=== PATIENT | female | born 1965 | race Caucasian/White ===

== ENCOUNTER 2017-06-05 14:51 | Emergency (ER) | payer MEDICAID ==
[~2017-06-05] VITALS: Ht 165.1 cm; Wt 117.9 kg
[2017-06-05 14:58] VITALS: BP_SYST 147
--- NOTE | 2017-06-05 15:01 | NUR ---
Patient to ER bed 02 to gown for evaluation. Side rails up.
--- NOTE | 2017-06-05 15:02 | NUR ---
PT PRESENTS TO ED C/O PAIN W/ DEEP INSPIRATION. PT H/O HTN W/O COMPLIANTS W/O MEDS.
--- NOTE | 2017-06-05 15:04 | NUR ---
ER at bedside examining patient.
[2017-06-05] MEDS: IBUPROFEN 800 MG TABLET PO ONE (15:35)
[2017-06-05] MEDS: ONDANSETRON 4 MG ODT TAB PO ONE (15:35)
[2017-06-05] MEDS: traMADol HCL HCL 50 MG TABLET (ULTRAM) PO ONE (15:35)
--- NOTE | 2017-06-05 15:35 | NUR ---
PT MEDICATED TOLERATED WELL.
[2017-06-05 15:47] LABS: BASOPHILS # (AUTO) 0.4 K/uL (0.0-0.2); BASOPHILS % (AUTO) 3.4 % (0.0-2.0); EOSINOPHILS # (AUTO) 0.3 K/uL (0.0-0.4); EOSINOPHILS % (AUTO) 2.8 % (0.0-4.0); HEMOGLOBIN 14.1 g/dL (12.0-16.0); LYMPHOCYTES # (AUTO) 2.3 K/uL (1.0-5.5); MEAN CORPUSCULAR HEMOGLOBIN 29 pg (27-31); MEAN CORPUSCULAR HGB CONC 33 % (32-36); MEAN CORPUSCULAR VOLUME 89 fL (79.0-98.0); MONOCYTES # (AUTO) 0.8 K/uL (0.0-1.0); MONOCYTES % (AUTO) 7.7 % (1.7-9.3); NEUTROPHILS % (AUTO) 65.1 % (40.0-70.0); PLATELET COUNT (AUTO) 322 K/uL (130-430); RED BLOOD CELL COUNT(AUTO) 4.83 MIL/uL (4.2-6.2); RED CELL DISTRIBUTION WIDTH 12.2 % (9.0-15.0); WHITE BLOOD COUNT (AUTO) 10.8 K/uL (4.8-10.8)
[2017-06-05 15:58] LABS: CALCIUM 9.6 mg/dL (8.4-11.0); CREATININE 0.81 mg/dL (0.55-1.30); POTASSIUM 3.9 mmol/L (3.5-5.1)
--- NOTE | 2017-06-05 16:00 | NUR ---
PT REPORTS PAIN RESOLVING. CONTINUING TO MONITOR
[2017-06-05 16:01] LABS: PROTHROMBIN TIME 10.1 SECS (9.5-12.5)
[2017-06-05 16:03] LABS: ALBUMIN 3.9 g/dL (3.4-4.8); TOTAL BILIRUBIN 0.8 mg/dL (0.0-1.0)
[2017-06-05 16:59] VITALS: BP_SYST 133
--- NOTE | 2017-06-05 16:59 | NUR ---
Patient given written and verbal discharge instructions and verbalizes understanding. ER MD discussed with patient the results and treatment provided. Patient in stable condition. ID arm band removed. Rx of TRAMADOL.MOTRIN,ZOFRAN given. Patient educated on pain management and to follow up with PMD. Pain Scale 2. Opportunity for questions provided and answered.
== END 2017-06-05 16:59 | disposition home or self-care (01) ==
LOC: SED 14:51
DX: R09.1 Pleurisy (principal); Z88.1 Allergy status to other antibiotic agents
CPT/HCPCS: 36415; 71045; 80053; 84484; 85025; 85379; 85610; 85730; 93005; 99285; Q0162

== ENCOUNTER 2018-09-16 21:56 | Emergency (ER) | payer MEDICAID ==
[~2018-09-16] VITALS: Ht 165.1 cm; Wt 120.2 kg
[2018-09-16 22:02] VITALS: BP_SYST 152
[2018-09-17] MEDS ORDERED: KETOROLAC TROMETHAMINE 60 MG/2 ML VIAL IM ONE (00:15)
[2018-09-17 01:22] VITALS: BP_SYST 142
== END 2018-09-17 01:22 | disposition home or self-care (01) ==
LOC: SED 21:56
DX: M54.30 Sciatica, unspecified side (principal); K21.9 Gastro-esophageal reflux disease without esophagitis; I10 Essential (primary) hypertension; E66.01 Morbid (severe) obesity due to excess calories; Z68.41 Body mass index [BMI] 40.0-44.9, adult; Z88.1 Allergy status to other antibiotic agents
CPT/HCPCS: 96372; 99283; J1885

== ENCOUNTER 2018-10-01 11:35 | Inpatient (IN) | payer MEDICAID ==
[~2018-10-01] VITALS: Ht 165.1 cm; Wt 118.8 kg
[2018-10-01 11:40] VITALS: BP_SYST 122
--- NOTE | 2018-10-01 11:41 | NUR ---
Patient to ER bed 5 to gown for evaluation. Side rails up. Report given to Lev FELTON.
--- NOTE | 2018-10-01 11:42 | NUR ---
Pt AAOx4 BIB BLS c/o 10/10 L lower back pain x a "few days" shooting down legs. Hx sciatica, spinal stenosis. Pt unable to ambulate due to pain. Pt denies taking medication for pain. Denies N/V/D/tingling/numbness. No other injuries/complaints per pt/noted. Will continue to monitor.
--- NOTE | 2018-10-01 11:43 | NUR ---
ER Dr. STINSON at bedside examining patient.
[2018-10-01] MEDS ORDERED: KETOROLAC TROMETHAMINE 60 MG/2 ML VIAL IM ONE (11:45)
--- NOTE | 2018-10-01 11:50 | NUR ---
Pt reports LMP x 5 years ago r/t menopause. Pt denies possibility of .
--- NOTE | 2018-10-01 11:55 | NUR ---
Medication administered. Pt tolerated well. No adverse reactions noted.
--- NOTE | 2018-10-01 12:20 | NUR ---
Pt placed on bed martinez. Pt tolerated well. Pt assisted to position of comfort. Room lights turned off per pt request.
[2018-10-01] MEDS ORDERED: MORPHINE 4 MG/ML INJ. SYRINGE IM ONE (12:45)
--- NOTE | 2018-10-01 13:05 | NUR ---
Patient requested bed martinez. Placed patient on bed martinez.
--- NOTE | 2018-10-01 13:50 | NUR ---
ER at bedside discussing results with patient.
[2018-10-01] MEDS ORDERED: LISI10TA5 PO (15:21)
[2018-10-01] MEDS ORDERED: HYDR25TA4 PO (15:21)
[2018-10-01] MEDS ORDERED: LIP10 PO (15:21)
--- NOTE | 2018-10-01 15:21 | NUR ---
Medication reconciliation completed with information provided by patient. Any prior medication reconciliation on file was reviewed and corrected.
--- NOTE | 2018-10-01 15:40 | NUR ---
Called [facility] for bed. Per [facility], will call back when available.
[2018-10-01] MEDS ORDERED: ONDANSETRON HCL 4 MG/2 ML VIAL IVP ONE (15:45)
--- NOTE | 2018-10-01 15:55 | NUR ---
Patient will be admitted to care of Dr. Artis. Admitted to Medsurg unit. Will go to room 124A. Belongings list completed. Summary report printed. Report will be given at bedside.
--- NOTE | 2018-10-01 15:59 | NUR ---
ADMISSION: The patient, BENIGNO TRAN, 53 y/o, F admitted by TAMMY HOPPER MD, was given written information regarding hospital policies, unit procedures and contact persons. Valuables were checked and .
--- NOTE | 2018-10-01 16:00 | NUR ---
Report given tpo Elizabeth FELTON & Savanna FELTON
--- NOTE | 2018-10-01 16:04 | NUR ---
INITIAL ADMISSION NOTE Patient resting in the bed. No acute distress. AAO x 4. Skin warm and dry to touch. IV intact to left arm, no redness, no swelling, patent. Discussed the safety issue, use call light when needs help, and plan of care, verbally understanding. Safety measure maintained. Call light within reached. Bed locked in low position, side rails up, bed alarm on. Will continue to monitor.
--- NOTE | 2018-10-01 16:16 | NUR ---
OFF UNIT FOR CT OF LUMBER SPINE VIA BED IN STABLE CONDITION
[2018-10-01 16:23] VITALS: BP_SYST 111
--- NOTE | 2018-10-01 16:33 | NUR ---
BACK TO UNIT VIA BED IN STABLE CONDITION.
--- NOTE | 2018-10-01 19:04 | NUR ---
CLOSING NOTE Patient resting in the bed. No acute distress. Skin warm and dry to touch. IV intact to LAC, no redness, no swelling, patent. All needs met. Safety measure maintained. Call light within reached. Bed locked in low position, side rails up, bed alarm on. Will endorse to night nurse.
--- NOTE | 2018-10-01 19:10 | NUR ---
Pt is fully AAO x4. no c/o pain and no acute distress noted. Saline lock is intact in LAC without any signs of infiltration. Fall and safety precautions are in place.
[2018-10-01 20:00] VITALS: BP_SYST 115
--- NOTE | 2018-10-01 21:12 | NUR ---
Tiffani from [facility] called to obtain information.
--- NOTE | 2018-10-01 21:18 | NUR ---
PAGED PAGED DOCTOR ZENY WHO IS METAL SPRAY OPERATOR FOR [facility]. FOR ORDERS
--- NOTE | 2018-10-01 21:25 | NUR ---
Result of CT of L spine read to Dr. Dhillon and new orders given.
[2018-10-01] MEDS: ATORVASTATIN 10 MG TABLET PO SCH (22:49)
[2018-10-01] MEDS: HYDROcodone/ACETAMIN 5-325 MG TAB (NORCO/ VICODIN) PO PRN (22:51)
--- NOTE | 2018-10-01 22:51 | NUR ---
[place] 5/325mg 1 tablet was given po for c/o left lower back with relief. Call light is with pt and bed alarm is on.
[2018-10-01] MEDS ORDERED: ATORVASTATIN 10 MG TABLET ONE (22:56)
--- NOTE | 2018-10-02 00:40 | NUR ---
Pt is sleeping without any distress noted. Saline lock is intact in LAC. Fall and safety precautions are in place.
[2018-10-02 01:32] VITALS: BP_SYST 120
--- NOTE | 2018-10-02 02:00 | NUR ---
Pt is sleeping without any distress noted. Saline lock is intact in LFA. Fall and safety precautions are in place.
--- NOTE | 2018-10-02 04:05 | NUR ---
Pt is resting quietly in bed and was assisted with bedpan. Fall and safety precautions are in place. Call light is with pt and bed alarm is on.
--- NOTE | 2018-10-02 06:30 | NUR ---
Pt is awake and resting quietly in bed. No c/o pain or discomfort. All pt's needs were attended to. Saline lock is intact in LAC. No fall or injury noted this shift. Fall and safety precautions are in place. Will endorse to day shift nurse.
[2018-10-02] MEDS: HYDROcodone/ACETAMIN 5-325 MG TAB (NORCO/ VICODIN) PO PRN ×4 (07:53→21:15)
[2018-10-02 08:00] VITALS: BP_SYST 123
--- NOTE | 2018-10-02 08:00 | NUR ---
Note Pt attempting to sit up in bed to eat her breakfast. Pt states she is having strong back pain attempting to sit up in bed at this time. IV in left AC intact and patent at this time. No SOB/resp distress noted at this time. Pt uses bedpan, stating it is too painful to get OOB to BSC at this time. Call light within reach.
[2018-10-02] MEDS: ATORVASTATIN 10 MG TABLET PO SCH ×3 (08:45→18:00)
--- NOTE | 2018-10-02 10:04 | NUR ---
Nutrition Update Chai Scale 15 noted. Pt admitted for intractable back pain. Diet: 2 gm Na BMI: 43.6 kg/m2 RD to follow per nutrition care standards.
[2018-10-02] MEDS ORDERED: ATORVASTATIN 10 MG TABLET PO SCH (10:17)
--- NOTE | 2018-10-02 11:45 | NUR ---
Note Pt was able to get OOB and ambulate with PT and FWW out into the hallway. Pt had been given [place] 1 tablet at around 08am. No needs noted. Pt was assessed and seen by Dr Daniels at bedside at 1115am. Questions/concerns were answered at this time. Orders written and carried out. No needs noted at this time. Call light within reach. Radiology at bedside to take pt down for MRI of spine.
[2018-10-02 12:50] VITALS: BP_SYST 128
--- NOTE | 2018-10-02 13:10 | NUR ---
Note Pt back to room/bed - sitting up in bed eating her lunch at this time. [place] 1 tab given for pain at 6/10 on pain scale of 0/10. Call light within reach.
--- NOTE | 2018-10-02 15:40 | NUR ---
Note Pt has been getting in and OOB to restroom with FWW 2-3X this afternoon. Standby assist only. No needs noted at this time. Call light within reach.
[2018-10-02 16:55] VITALS: BP_SYST 121
--- NOTE | 2018-10-02 18:15 | NUR ---
Note Pt sitting up in bed eating her dinner. Pt was checked on q1' and PRN all shift for needs and care. IV left AC intact and patent at this time. No needs noted at this time. Call light within reach.
--- NOTE | 2018-10-02 19:20 | NUR ---
Initial Note Received patient awake, alert and oriented. Assisted patient to the bathroom with a walker. Denies any SOB or n/v at this time. Grimaces upon movement and complain of back pain. Last time medicated was at 1715. Will provide comfort measures when back in bed. Patient able to ambulate back to bed by herself. Saline lock. Skin intact and no peripheral edema noted. Care and monitoring will be provided per protocol. Call light within reach. Bed alarm on and at lowest position at all times. Needs attended. Kept warm and comfortable. Safety and fall precaution observed.
[2018-10-02 20:00] VITALS: BP_SYST 111
--- NOTE | 2018-10-02 21:15 | NUR ---
Pain med Medicated for back pain per patient's request. Applied ice packs and comfort measures provided. Assist in repositioning. Needs attended. Kept comfortable.
--- NOTE | 2018-10-02 23:00 | NUR ---
RN Note Patient sleeping at this time. No SOB or grimacing noted.
[2018-10-02 23:16] VITALS: BP_SYST 106
--- NOTE | 2018-10-03 01:00 | NUR ---
RN Note Asleep, moves occasionally. No distress noted.
[2018-10-03] MEDS: HYDROcodone/ACETAMIN 5-325 MG TAB (NORCO/ VICODIN) PO PRN (02:20)
--- NOTE | 2018-10-03 02:20 | NUR ---
Pain med Medicated for back pain as requested. Ice pack given as well. Comfort measures provided. Kept comfortable.
--- NOTE | 2018-10-03 06:30 | NUR ---
End Note Afebrile. VS stable. No complain of SOB or n/v throughout the night. Medicated for pain twice all night. Feels pain only when she moves or transfer to go to the bathroom. Patient might need stronger pain medication and medicatio for sore throat, will endorse. Saline lock. Ambulates to the bathroom with a walker and standby assist. Care and monitoring provided per protocol. Call light within reach. Bed alarm off as requested. Bed at lowest position at all times. Needs attended. Kept warm and comfortable.
--- NOTE | 2018-10-03 07:40 | NUR ---
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
[2018-10-03 08:14] VITALS: BP_SYST 107
[2018-10-03] MEDS: HYDROcodone/ACETAMIN 10-325 MG TAB PO PRN ×2 (10:28→15:41)
--- NOTE | 2018-10-03 10:28 | NUR ---
pain medication patient complaining of lower back pain, educated on medication use and side effects, patient verbalized understanding, no other needs addressed at this time, fall/safety precautions in place.
--- NOTE | 2018-10-03 12:02 | NUR ---
Case mgt: Rec'd dc to snf orders--Per porter sample case at [facility], -pt is accepted at [facility]-she will arrange for ambulance transportation at 3:00pm and will call nurse Allie to give her details--SNF packet being made and nurse Kelley aware--[facility] s/[facility] pt (per [facility]) and pt agreeable to snf--[facility] ph#[phone]--AMOR FELTON
[2018-10-03 12:05] VITALS: BP_SYST 111
[2018-10-03 12:22] VITALS: BP_SYST 111
--- NOTE | 2018-10-03 12:27 | NUR ---
rounds patient is resting in bed, informed patient that she was accepted at [facility] and can be transferred this afternoon, patient verbalized understanding, no other needs at this time, fall/safety precautions in place.
--- NOTE | 2018-10-03 14:30 | NUR ---
rounds got an update on patient, luciano arranged for [facility], tried to inform patient but patient had her eyes closed with snoring, no signs of distress, I wrote on the board information about her pickup, no other needs addressed at this time, fall/safety precautions in place.
--- NOTE | 2018-10-03 14:33 | NUR ---
Dietitian Recommendations * Recommend continuing 2 gm Na diet per LP, RD Please refer to Nutrition Assessment for details.
--- NOTE | 2018-10-03 16:28 | NUR ---
rounds patient is resting in bed, was able to update her on discharge plan, patient verbalized understanding, no other needs at this time, fall/safety precautions in place.
[2018-10-03 16:58] VITALS: BP_SYST 115
[2018-10-03] MEDS: ATORVASTATIN 10 MG TABLET PO SCH (17:41)
--- NOTE | 2018-10-03 18:57 | NUR ---
closing note patient is resting in bed, patient is awaiting for transfer to [facility], no signs of distress at this time, will endorse report to noc shift nurse to completed discharge when ambulance is her, report was given to TIM Hooks at [facility], no other needs at this time.
[2018-10-03 20:05] VITALS: BP_SYST 123
--- NOTE | 2018-10-03 20:05 | NUR ---
Discharge Pt AAOx4, VSS, Ambulance here to leaf size picker pt to be discharged to [facility]. All belongings with pt.
== END 2018-10-03 20:10 | DRG 347 ==
LOC: SED 11:35 → SMU 15:18
PROVIDERS: ADMIT Internal Medicine; ATTEND Internal Medicine
DX: M51.9 Unspecified thoracic, thoracolumbar and lumbosacral intervertebral disc disorder (principal); E66.01 Morbid (severe) obesity due to excess calories; M48.00 Spinal stenosis, site unspecified; G89.29 Other chronic pain; I10 Essential (primary) hypertension; K21.9 Gastro-esophageal reflux disease without esophagitis; M54.30 Sciatica, unspecified side; Z79.899 Other long term (current) drug therapy; Z68.41 Body mass index [BMI] 40.0-44.9, adult; Z88.1 Allergy status to other antibiotic agents
CPT/HCPCS: 72131; 72148; 96372; 97116-GP; 97530-GP; 99285; J1885; J2270